=== PATIENT | female | born 1955 | race Asian ===

== ENCOUNTER 2022-05-25 06:39 | Day surgery (SDC) | payer BC ==
[2022-05-22 15:28] VITALS: BMI 21.9
[2022-05-25 06:57] VITALS: RESP 18
[2022-05-25] MEDS ORDERED: PROPOFOL 40 ML ONE (07:44)
[2022-05-25] MEDS ORDERED: LIDOCAINE HCL/PF 2% SDV 5ML VIAL ONE (07:44)
[2022-05-25] MEDS ORDERED: ePHEDrine SULFATE 50 MG/1 ML AMPULE ONE (08:29)
[2022-05-25 08:57] VITALS: PULSE 62
[2022-05-25 09:36] VITALS: BP 104/60; TEMP 98
== END 2022-05-25 09:30 | disposition home or self-care (01) ==
LOC: FASU-ENDO 06:39
PROVIDERS: ATTEND Internal Medicine
PROC: 0DBN8ZX Excision of Sigmoid Colon, Via Natural or Artificial Opening Endoscopic, Diagnostic (ICD-10-PCS; principal; 2022-05-25 07:53)
DX: Z12.11 Encounter for screening for malignant neoplasm of colon (principal); K63.5 Polyp of colon; K64.8 Other hemorrhoids
CPT/HCPCS: 88305-TC